=== PATIENT | female | born 1975 | race African-American/Black ===

== ENCOUNTER 2021-04-11 19:43 | Inpatient (IN) | payer MEDICAID, OTHER ==
[~2021-04-11] VITALS: Ht 167.6 cm; Wt 91.0 kg
[2021-04-11] MEDS ORDERED: NITROGLYCERIN 0.4MG TABLET SL SL PRN (20:15)
[2021-04-11 20:59] LABS: BASOPHILS % 0.5 % (0.0-2.0); EOSINOPHILS % 2.1 % (0.0-5.0); LYMPHOCYTES % 31.8 % (20.0-50.0); MEAN CORPUSCULAR HEMOGLOBIN 27.8 pg (28.0-32.0); MEAN CORPUSCULAR VOLUME 81.5 fL (81.0-99.0); MEAN PLATELET VOLUME 6.5 fl (7.4-10.4); NEUTROPHILS % 57.6 % (40.0-76.0); PLATELET 368 x1000/uL (130-400); RED BLOOD CELL COUNT 4.67 mill/uL (4.2-5.4); RED CELL DISTRIBUTION WIDTH 15.7 % (11.6-14.6)
[2021-04-11 21:03] LABS: CHLORIDE 110 mEq/L (98-107)
[2021-04-11 21:07] LABS: D-DIMER 0.76 mg/L FEU (<0.50); PARTIAL THROMBOPLASTIN TIME 29.6 sec (23.4-31.0); PROTHROMBIN TIME 10.3 sec (9.6-11.0)
[2021-04-11 21:09] LABS: HCG SCREEN NEGATIVE
[2021-04-11] MEDS ORDERED: MORPHINE SULFATE 4 MG/ML CPJ (NOT FOR IM USE) IV STA (22:22)
[2021-04-11] MEDS ORDERED: ONDANSETRON HCL 4MG/2ML INJ IV STA (22:22)
[2021-04-11] MEDS ORDERED: MORPHINE SULFATE 2 MG/ML CPJ (NOT FOR IM USE) IV NR (22:45)
[2021-04-11] MEDS ORDERED: IOHEXOL-350 100 ML BOTTLE ONE (23:36)
[2021-04-12] MEDS ORDERED: ACETAMINOPHEN 325MG TABLET PO PRN ×2 (00:45)
[2021-04-12] MEDS ORDERED: HYDROCODONE/ACETAMINOPHEN 10/325MG TABLET PO PRN (00:45)
[2021-04-12] MEDS ORDERED: GUAIFENESIN 200MG/10ML SUGAR FREE UDC PO PRN (00:45)
[2021-04-12] MEDS ORDERED: CLONIDINE 0.1MG TABLET PO PRN (00:45)
[2021-04-12] MEDS ORDERED: ONDANSETRON HCL 4MG/2ML INJ IV PRN (00:45)
[2021-04-12] MEDS ORDERED: DIPHENHYDRAMINE 50MG/ML VIAL IV PRN (00:45)
[2021-04-12] MEDS ORDERED: ZOLPIDEM TARTRATE 5MG TABLET PO PRN (00:45)
[2021-04-12] MEDS ORDERED: AMPICILLIN 500 MG in SODIUM CHLORIDE 0.9% 50 ML IV SCH (00:45)
[2021-04-12] MEDS ORDERED: IPRATROPIUM/ALBUTEROL 0.5-3(2.5)MG/3ML NEB HHN PRN (00:45)
[2021-04-12] MEDS ORDERED: POTASSIUM CHLORIDE 20MEQ/PACKET PO NR (01:30)
[2021-04-12] MEDS ORDERED: AMPICILLIN 1000MG in SODIUM CHLORIDE 0.9% 50ML IV SCH (02:00)
[2021-04-12] MEDS ORDERED: LORAZEPAM 1MG TABLET PO PRN (02:00)
[2021-04-12 02:26] VITALS: BP 152/94
[2021-04-12] MEDS ORDERED: SODIUM CHLORIDE 0.9% INJ 3ML FLUSH IVF SCH (06:00)
[2021-04-12] MEDS ORDERED: ENOXAPARIN 40MG/0.4ML SYR SUBCUT SCH (06:00)
[2021-04-12] MEDS ORDERED: AMLODIPINE 10MG TABLET PO SCH (09:00)
[2021-04-12] MEDS ORDERED: DOCUSATE SODIUM 100MG CAPSULE PO SCH (09:00)
[2021-04-12] MEDS ORDERED: LORATADINE 10MG TABLET PO SCH (09:00)
== END 2021-04-12 02:26 | disposition left against medical advice (07) | DRG 203 ==
LOC: ER 19:43 → MICUSO 21:25 → EDBD 21:25
PROVIDERS: ADMIT Internal Medicine; ATTEND Internal Medicine
DX: M94.0 Chondrocostal junction syndrome [Tietze] (principal); E66.9 Obesity, unspecified; F17.200 Nicotine dependence, unspecified, uncomplicated; I10 Essential (primary) hypertension; Z20.822 Contact with and (suspected) exposure to COVID-19; J45.909 Unspecified asthma, uncomplicated; Q07.00 Arnold-Chiari syndrome without spina bifida or hydrocephalus; Z83.3 Family history of diabetes mellitus; Z68.32 Body mass index [BMI] 32.0-32.9, adult
CPT/HCPCS: 36415; 71045; 71275; 80053; 83036; 83880; 84484; 84703; 85025; 85379; 87426; 93005; 99285; J0290; J2270; J2405; Q9967